=== PATIENT | female | born 1940 | race Caucasian/White ===

== ENCOUNTER → 2018-01-20 | Outpatient (CLI) | payer MEDICARE | END | disposition home or self-care (01) | LOC: CVU 09:35 | PROVIDERS: ATTEND Internal Medicine Cardiovascular Disease | DX: I70.8 Atherosclerosis of other arteries (principal); I71.4 Abdominal aortic aneurysm, without rupture; I10 Essential (primary) hypertension; E78.5 Hyperlipidemia, unspecified; Z87.891 Personal history of nicotine dependence | CPT/HCPCS: 93978 ==

== ENCOUNTER → 2018-05-08 | Outpatient (CLI) | payer MEDICARE ==
[~2018-05-08] MED LIST: REGADENOSON 0.4 MG/5 ML SYRINGE ONE
== END | disposition home or self-care (01) ==
LOC: CFH 05-06 12:23
PROVIDERS: ATTEND Internal Medicine Cardiovascular Disease
DX: R07.89 Other chest pain (principal)
CPT/HCPCS: 78452; 93017; A9502; J2785

== ENCOUNTER → 2018-09-25 | Outpatient (CLI) | payer MEDICARE | END | disposition home or self-care (01) | LOC: CVU 10:26 → EDSTATUS 11:00 | PROVIDERS: ATTEND Internal Medicine Cardiovascular Disease | DX: I71.4 Abdominal aortic aneurysm, without rupture (principal); I70.202 Unspecified atherosclerosis of native arteries of extremities, left leg | CPT/HCPCS: 93978 ==

== ENCOUNTER 2020-11-06 09:24 | Emergency (ER) | payer MEDICARE ==
[~2020-11-06] VITALS: Ht 160 cm; Wt 62.0 kg
[2020-11-06] MEDS ORDERED: ONDANSETRON ODT 4 MG PO ONE (09:30)
[2020-11-06] MEDS ORDERED: ONDANSETRON ODT 4 MG ONE (09:32)
--- NOTE | 2020-11-06 09:36 | NUR ---
Pt BIB [facility] from home-c/o nausea without vomiting x1 month after she had a stroke. Pt also has various complaints that also began after her stroke including bilat leg pain, dysphagia, nausea, difficulty hearing on L side. Pt positioned for comfort in bed with warm blankets, continuous oxygen and BP monitors applied, all safety measures observed.
[2020-11-06] MEDS ORDERED: PLEASE ENTER ALLERGIES MC SCH (10:00)
[2020-11-06] MEDS ORDERED: PLEASE ENTER HEIGHT AND WEIGHT MC SCH (10:00)
--- NOTE | 2020-11-06 10:00 | NUR ---
Pt assisted to bedside comode to use restroom, small amount of blood noted in comode due to Hx of hemoroids. NADN. No other requests at this time.
[2020-11-06 11:07] VITALS: BP 137/72
== END 2020-11-06 11:10 | disposition home or self-care (01) ==
LOC: ED 10:39
DX: R19.7 Diarrhea, unspecified (principal); R11.0 Nausea; R94.31 Abnormal electrocardiogram [ECG] [EKG]; Z86.73 Personal history of transient ischemic attack (TIA), and cerebral infarction without residual deficits
CPT/HCPCS: 93005; 99283; Q0162

== ENCOUNTER 2020-12-12 13:49 | Outpatient (CLI) | payer MEDICARE | END 2020-12-12 23:59 | disposition home or self-care (01) | LOC: CVU 13:49 | PROVIDERS: ATTEND Internal Medicine Cardiovascular Disease | DX: I65.23 Occlusion and stenosis of bilateral carotid arteries (principal); I70.203 Unspecified atherosclerosis of native arteries of extremities, bilateral legs; R07.89 Other chest pain; I71.4 Abdominal aortic aneurysm, without rupture; I63.9 Cerebral infarction, unspecified | CPT/HCPCS: 93880; 93978 ==